=== PATIENT | female | born 1970 | race Caucasian/White ===

== ENCOUNTER 2020-02-09 22:14 | Emergency (ER) | payer BC, SELFPAY ==
[2020-02-09 22:16] VITALS: BP 117/68; PULSE 79; RESP 18; TEMP 36.4; O2SAT 100
--- NOTE | 2020-02-09 22:39 | ED.DENTAL ---
HPI - Dental/Oral General Chief complaint: Dental/Oral Stated complaint: right lower jaw pain and swelling Time Seen by Provider: 02/09/20 22:30 History of Present Illness HPI Narrative: Patient is a 49-year-old female who presents ER with right jaw pain and swelling. Reported some pain yesterday evening and then worsened this morning. When she arrived home from work her spouse noted that she had significant swelling. No difficulty breathing or swallowing. No fevers or chills or sweats. Does have discomfort at the base of her jaw and had a fractured tooth #31. Related Data Allergies Allergy/AdvReac Type Severity Reaction Status Date / Time No Known Allergies Allergy Mild Verified 10/17/09 20:53 Review of Systems Constitutional: Constitutional: Denies chills and Denies fever(s) ENT: Comments: Jaw pain and swelling PMFSH Past Medical History Medical History (Updated 02/09/20 @ 22:57 by Gonzalez Dodge MD) Healthy female adult Surgical History Surgical History (Updated 02/09/20 @ 22:57 by Gonzalez Dodge MD) No history of previous surgery Social History Social History Gender identity (if verbalized by the patient): Female Sexual Orientation (if Verbalized by the Patient): Straight or Heterosexual Exam Narrative: Exam Narrative: GENERAL: Well-appearing, well-nourished, and in no acute distress. HEAD: Normocephalic, atraumatic. ENT: Mucous membranes moist. Swelling to right mandible near the angle. Intraorally patient has a fractured tooth #31. No obvious drainable abscess intraorally. Tolerating oral secretions without issues. NEURO: Alert and oriented x3. PSYCH: Normal mood and affect. Course Course Emergency Course: D/c with abx and norco. Vital Signs Vital signs: Vital Signs Temperature 97.5 F L 02/09/20 22:16 Pulse Rate 79 02/09/20 22:16 Respiratory Rate 18 02/09/20 22:16 Blood Pressure 117/68 02/09/20 22:16 Pulse Oximetry 100 02/09/20 22:16 Temperature 97.5 F L 02/09/20 22:16 Pulse Rate 79 02/09/20 22:16 Respiratory Rate 18 02/09/20 22:16 Blood Pressure 117/68 02/09/20 22:16 Pulse Oximetry 100 02/09/20 22:16 Discharge Plan Discharge Clinical Impression: Dental abscess Patient Disposition: Home, Self-Care Condition: Stable Instructions: Antibiotic Form, Dental Abscess (ED) Additional Instructions: Return to the ER if you cannot breathe, you cannot swallow, or have additional concerns. Prescriptions: New hydrocodone-acetaminophen 5-325 mg tablet 1 tablet PO Q6H PRN (Reason: pain) Qty: 10 RF: 0 amoxicillin-pot clavulanate [Augmentin] 875-125 mg tablet 1 tablet PO Q12H Qty: 20 RF: 0 Follow-up/Referrals: Alix,Tricia Alarcon MD [Primary Care Provider] -
== END 2020-02-09 22:54 | disposition home or self-care (01) ==
PROVIDERS: Emergency Provider Emergency Medicine; PCP Family Medicine
DX: K04.7 Periapical abscess without sinus (principal)
CPT/HCPCS: 99283

== ENCOUNTER 2021-05-09 08:07 | Outpatient (CLI) | payer OTHER, SELFPAY ==
--- NOTE | ~2021-05-09 | MM_ITS ---
EXAMINATION: MM screening naheed BI w anisa HISTORY: Screening TECHNIQUE: Craniocaudal and mediolateral oblique 3-D tomosynthesis images were obtained and synthetic 2-D images were generated. CAD analysis was submitted and interpreted. COMPARISON: No prior mammogram is available for comparison at this institution. BREAST PARENCHYMAL COMPOSITION: The breasts are extremely dense, which lowers the sensitivity of mamm ography FINDINGS: There is no evidence of suspicious mass, calcification, or architectural distortion to sugg est malignancy in either breast. There has been no suspicious interval change. IMPRESSION: 1. No mammographic evidence of malignancy. 2. Recommend routine screening mammography in one year. BI-RADS Category 1: Negative Reviewed, dictated and finalized at location A. [employer]
--- NOTE | ~2021-05-09 | US_ITS ---
EXAMINATION: US thyroid DATE: 05/09/2021 09:18 INDICATION: Nontoxic goiter. TECHNIQUE: Multiple ultrasound images of the thyroid were obtained. COMPARISON: None. FINDINGS: The right thyroid lobe measures 4.9 x 1.6 x 1.5 cm. The left thyroid lobe measures 4.4 x 1.4 x 1.6 c m. The thyroid is diffusely hypoechoic with coarsened echotexture and increased vascularity. No disc rete nodule. IMPRESSION: 1. Heterogeneous, hypervascular thyroid, consistent with chronic lymphocytic (Charles) thyroiditis. Reviewed, dictated and finalized at location B. [employer] REPAIRER IMPRESSION: 1. Heterogeneous, hypervascular thyroid, consistent with chronic lymphocytic (H ashimoto) thyroiditis.
== END 2021-05-09 08:08 | disposition home or self-care (01) ==
LOC: ANHIMG 08:11
PROVIDERS: PCP Physician Assistant; Visit Provider Physician Assistant
DX: Z12.31 Encounter for screening mammogram for malignant neoplasm of breast (principal); E04.9 Nontoxic goiter, unspecified
CPT/HCPCS: 76536; 77063; 77067

== ENCOUNTER 2022-07-02 20:21 | Emergency (ER) | payer OTHER, SELFPAY ==
[2022-07-02 20:24] VITALS: BP 137/85; PULSE 80; RESP 18; TEMP 37; O2SAT 100
--- NOTE | 2022-07-02 21:10 | ED.EYEPROB ---
HPI - Eye Problem General Chief complaint: Eye Problems <Rafaela Mcfarlane PA-C - Last Filed: 07/03/22 00:42> Stated complaint: eye swelling <Rafaela Mcfarlane PA-C - Last Filed: 07/03/22 00:42> Time Seen by Provider: 07/02/22 20:46 <Rafaela Mcfarlane PA-C - Last Filed: 07/03/22 00:42> History of Present Illness HPI Narrative: Patient is a 52-year-old female here for evaluation of left eye irritation over the past day. Patient wears contact lenses. Started with FB sensation in the morning which has since progressed. Has large amount of thick white discharge and itching. No blurry vision or headaches. <Rafaela Mcfarlane PA-C - Last Filed: 07/03/22 00:42> Related Data Allergies/adverse reactions: Allergies Allergy/AdvReac Type Severity Reaction Status Date / Time No Known Allergies Allergy Mild Verified 10/17/09 20:53 <Rafaela Mcfarlane PA-C - Last Filed: 07/03/22 00:42> Review of Systems Review of Systems: Gen.: Denies fevers or chills Eyes: Reports eye irritation ENT: Denies congestion Respiratory: Denies shortness of breath or cough CV: Denies chest pain or palpitations GI: Denies abdominal pain nausea, emesis or diarrhea denies burning, urgency, frequency or hematuria Musculoskeletal: Denies back pain or muscle pain Neuro: Denies numbness, tingling, weakness or focal weakness Skin: Denies rash Except as documented, all other systems reviewed and negative <Rafaela Mcfarlane PA-C - Last Filed: 07/03/22 00:42> [facility] Past Medical History Medical History: Medical History Healthy female adult <Rafaela Mcfarlane PA-C - Last Filed: 07/03/22 00:42> Surgical History Surgical History: Surgical History No history of previous surgery <Rafaela Mcfarlane PA-C - Last Filed: 07/03/22 00:42> Social History Social History: Social History Gender identity (if verbalized by the patient): Female Sexual Orientation (if Verbalized by the Patient): Straight or Heterosexual <Rafaela Mcfarlane PA-C - Last Filed: 07/03/22 00:42> Exam Narrative: APPEARANCE: Well appearing, no pain in distress, well-nourished. Head: Normocephalic and atraumatic. EYES: Minor conjunctival injection in the right eye. Fluorescein exam reveals no discrete area of uptake. Small amount of white stringy discharge noted on exam. PERRL. NOSE: No nasal drainage EARS: External ear normal in appearance THROAT: Oropharynx is clear. Mucous membranes are moist. NECK: Supple. No adenopathy, no masses. RESPIRATORY: Airway patent, respirations nonlabored. Clear to auscultation bilaterally, no rales, rhonchi, wheezing. CARDIOVASCULAR: Regular rate and rhythm without murmurs, rubs, or gallops. ABDOMINAL: Normoactive bowel sounds. Soft, nontender, nondistended. No rebound tenderness or guarding. MUSCULOSKELETAL: Extremities are warm and well-perfused. Moves all extremities well. No edema. NEURO: Normal speech. No focal neurologic deficits. SKIN: Skin is warm and dry. No rashes. PSYCHIATRIC: Normal affect/mood. <Rafaela Mcfarlane PA-C - Last Filed: 07/03/22 00:42> Course [employer]/PA Physician Supervision This is a was performed by both a physician and an APC. I performed all aspects of the MDM as documented w/ the following additions: 52-year-old contact wear presenting with bacterial conjunctivitis. No evidence of corneal ulceration. Patient be treated with Cipro and given Ophthalmology follow-up. All questions answered. Patient in agreement w/ disposition. <Jaspal Martino MD - Last Filed: 07/03/22 04:53> Vital Signs Vital signs: Vital Signs Temperature 98.6 F 07/02/22 20:24 Pulse Rate 80 07/02/22 20:24 Respiratory Rate 18 07/02/22 20:24 Blood Pressure 137/85 07/02/22 20:24 Pulse Oximetry 100 07/02/22 20:2
[2022-07-02] MEDS: FLUORESCEIN SOD 1 MG/STRIP (21:17)
[2022-07-02 21:45] VITALS: BP 126/77; PULSE 77; RESP 16; TEMP 36.6; O2SAT 98
== END 2022-07-02 21:46 | disposition home or self-care (01) ==
LOC: ANHED 21:30
PROVIDERS: Emergency Provider Physician Assistant; PCP Family Medicine
DX: H10.89 Other conjunctivitis (principal)
CPT/HCPCS: 99283